=== PATIENT | female | born 1985 | race Hispanic/Latino ===

== ENCOUNTER 2023-03-21 09:22 | Emergency (ER) | payer SELFPAY ==
[2023-03-21] MEDS ORDERED: Famotidine/PF 20 mg/2ml Vial ONE (09:57)
[2023-03-21] MEDS ORDERED: methylPREDNISolone Sod Succ/PF 125 MG/2 ML VIAL ONE (09:57)
[2023-03-21] MEDS ORDERED: diphenhydrAMINE 50 MG/ML VIAL ONE (10:46)
== END 2023-03-21 13:07 | disposition home or self-care (01) ==
LOC: CSHERS 09:22
DX: T78.2XXA Anaphylactic shock, unspecified, initial encounter (principal)
CPT/HCPCS: 96374; 96375; J1200; J2930; S0028